=== PATIENT | male | born 1985 | race Caucasian/White ===

== ENCOUNTER 2025-01-16 19:35 | Emergency (ER) | payer MEDICAID ==
[~2025-01-16] VITALS: Ht 175.3 cm; Wt 100.0 kg
[2025-01-16 19:35] VITALS: BP 135/92; PULSE 114; RESP 26; TEMP 98.4; O2SAT 99
[2025-01-16 19:55] LABS: PH,URINE DRUG SCREEN 6.0 (5.0-8.0)
[2025-01-16 20:01] LABS: ALCOHOL, URINE DRUG SCREEN NEGATIVE (NEGATIVE); AMPHET/METH SCREEN,URINE POSITIVE (NEGATIVE); BARBITURATE SCREEN, URINE NEGATIVE (NEGATIVE); CANNABINOID SCREEN,URINE NEGATIVE (NEGATIVE); COCAINE SCREEN,URINE NEGATIVE (NEGATIVE); METHADONE SCREEN, URINE NEGATIVE (NEGATIVE)
== END 2025-01-16 20:10 | disposition left against medical advice (07) ==
LOC: EMS 19:35
DX: Z00.8 Encounter for other general examination (principal); Z53.21 Procedure and treatment not carried out due to patient leaving prior to being seen by health care provider
CPT/HCPCS: 80307